=== PATIENT | male | born 1995 | race Caucasian/White ===

== ENCOUNTER 2020-09-06 14:48 | Emergency (ER) | payer OTHER ==
[~2020-09-06 14:48] MED LIST: BACTRIM DS TAB1 EACH PO; NORCO 7.5-3251 EACH PO
== END 2020-09-06 16:20 | disposition home or self-care (01) ==
LOC: ER1 14:48
DX: K59.00 Constipation, unspecified (principal); K62.89 Other specified diseases of anus and rectum; F17.210 Nicotine dependence, cigarettes, uncomplicated; Z53.20 Procedure and treatment not carried out because of patient's decision for unspecified reasons
CPT/HCPCS: 99283

== ENCOUNTER 2020-09-12 16:07 | Emergency (ER) | payer OTHER ==
[2020-09-12] MEDS ORDERED: DOXYCYCLINE HY100 MG PO (16:59)
[2020-09-12] MEDS ORDERED: HYDROCODON-ACE1 EAC4 PO (17:02)
== END 2020-09-12 17:12 | disposition home or self-care (01) ==
LOC: ER1 16:07
DX: N48.89 Other specified disorders of penis (principal); K62.89 Other specified diseases of anus and rectum
CPT/HCPCS: 99283

== ENCOUNTER 2021-03-19 19:37 | Emergency (ER) | payer OTHER ==
[~2021-03-19 19:37] MED LIST changes: +DOXYCYCLINE HY100 MG PO; +HYDROCODON-ACE1 EAC4 PO
== END 2021-03-19 20:01 | disposition left against medical advice (07) ==
LOC: ER1 19:37
DX: Z53.21 Procedure and treatment not carried out due to patient leaving prior to being seen by health care provider (principal)